=== PATIENT | female | born 1950 | race African-American/Black ===

== ENCOUNTER 2021-06-27 10:07 | Outpatient (CLI) | payer MEDICARE, BC ==
[2021-06-27 12:29] LABS: Mean Corpuscular HGB CONC 34.2 g/dL (32.0-36.0); Mean Corpuscular Hemoglobin 29.6 pg (27.0-33.0); Mean Corpuscular Volume 86.8 fl (81.6-98.3); Mean Platelet Volume 9.8 fl (7.4-10.4); Platelet Count 272 10x3/uL (150-450); RBC Distribution Width 15.6 % (11.5-14.5); Red Blood Cell (RBC) Count 5.06 10x6/uL (3.90-5.03); White Blood Cell (WBC) Count 8.6 10x3/uL (3.5-10.5)
[2021-06-27 12:45] LABS: Anion Gap 14 mmol/L (10-20); BUN (Urea Nitrogen) 15 mg/dL (9.8-20.1); Calc. Creatinine Clearance 0 mL/min (70-130); Calcium 9.6 mg/dL (7.8-10.44); Carbon Dioxide 31 mmol/L (23-31); Chloride 102 mmol/L (98-107); Glucose 129 mg/dL (80-115); Potassium 4.3 mmol/L (3.5-5.1); Sodium 143 mmol/L (136-145)
[2021-06-27 22:06] LABS: SARS-CoV-2 PCR by NAA Not Detected (NotDetected)
== END 2021-06-27 10:08 | disposition home or self-care (01) ==
LOC: LABBT 10:07
PROVIDERS: ATTEND Neurological Surgery
DX: Z01.818 Encounter for other preprocedural examination (principal); M43.16 Spondylolisthesis, lumbar region; Z20.822 Contact with and (suspected) exposure to COVID-19
CPT/HCPCS: 80048; 85027; 93005; U0003; U0005; 93010

== ENCOUNTER 2021-07-02 05:30 | Inpatient (IN) | payer MEDICARE, BC ==
[2021-07-02] MEDS ORDERED: fentaNYL Citrate/PF 100 MCG/2 ML SYRINGE ONE (06:40)
[2021-07-02] MEDS ORDERED: Ondansetron PF 4 MG/2 ML Vial ONE (06:46)
[2021-07-02] MEDS ORDERED: PROPOFOL 200 MG/20 ML VIAL ONE (06:46)
[2021-07-02] MEDS ORDERED: Lidocaine 1% PF 5 ML VIAL ONE (06:46)
[2021-07-02] MEDS ORDERED: PHENYLEPHRINE-NS 100 MCG/ML 10 ML SYRINGE ONE (06:46)
[2021-07-02] MEDS ORDERED: ePHEDrine 50 MG/ML VIAL ONE (06:46)
[2021-07-02] MEDS ORDERED: Dexamethasone 20 MG/5 ML VIAL ONE (06:46)
[2021-07-02] MEDS ORDERED: Rocuronium Bromide 10 MG/ML (10ML VIAL) ONE (06:46)
[2021-07-02] MEDS ORDERED: ceFAZolin (BATCH) 2 GM/100 ML BAG ONE (07:00)
[2021-07-02] MEDS ORDERED: Ondansetron HCl/PF 4 MG/2 ML Vial IVP PRN (07:03)
[2021-07-02] MEDS ORDERED: Meperidine HCl/PF 25 MG/ML VIAL SLOW IVP PRN ×2 (07:03)
[2021-07-02] MEDS ORDERED: Promethazine HCl 25 MG/ML VIAL IVPB PRN (07:03)
[2021-07-02] MEDS ORDERED: Morphine Sulfate 2 MG/ML SYRINGE SLOW IVP PRN (07:03)
[2021-07-02] MEDS ORDERED: HYDROmorphone 2 MG/ML VIAL SLOW IVP PRN (07:03)
[2021-07-02] MEDS ORDERED: Promethazine HCl 25 MG/ML VIAL IM PRN ×2 (07:03→12:15)
[2021-07-02] MEDS ORDERED: HYDROmorphone 2 MG/ML VIAL ONE (07:49)
[2021-07-02] MEDS ORDERED: SUGAMMADEX SODIUM 200 MG/2 ML VIAL ONE (08:44)
[2021-07-02] MEDS ORDERED: Fentanyl 250 MCG/5 ML VIAL ONE (09:13)
[2021-07-02 10:59] VITALS: BMI 37.2
[2021-07-02] MEDS ORDERED: Morphine 4 MG/ML VIAL SLOW IVP PRN (12:15)
[2021-07-02] MEDS ORDERED: Acetaminophen/Codeine 30-300mg Tablet PO PRN (12:15)
[2021-07-02] MEDS ORDERED: Milk Of Magnesia 30 ML UDCUP PO PRN (12:15)
[2021-07-02] MEDS ORDERED: Morphine 2 MG/ML VIAL SLOW IVP PRN (12:15)
[2021-07-02] MEDS ORDERED: diphenhydrAMINE 50 MG/ML VIAL IVP PRN (12:15)
[2021-07-02] MEDS ORDERED: Mag-Al 1200 mg/1200 mg/30 ML UDCUP PO PRN (12:15)
[2021-07-02] MEDS ORDERED: traMADol HCl 50 MG TAB PO PRN (12:15)
[2021-07-02] MEDS ORDERED: Ondansetron PF 4 MG/2 ML Vial IM PRN (12:15)
[2021-07-02] MEDS ORDERED: diphenhydrAMINE 25 MG CAP PO PRN (12:15)
[2021-07-02] MEDS ORDERED: Promethazine HCl 12.5 MG SUPP PR PRN (12:15)
[2021-07-02] MEDS: traMADol HCl 50 MG TAB PO PRN ×2 (12:21→20:48)
[2021-07-02] MEDS: Sodium Chloride 0.9% 1,000 ML IV SCH (12:22)
[2021-07-02] MEDS: ceFAZolin (BATCH) 2 GM in Premix Bag 1 BAG IVPB SCH ×2 (13:27→22:23)
[2021-07-02] MEDS: Amlodipine 10 MG TAB PO SCH (13:28)
[2021-07-02] MEDS: Furosemide 20 MG TAB PO SCH (13:28)
[2021-07-02] MEDS: Albuterol Sulfate 2.5 mg/3 ml Neb NEB SCH ×2 (14:40→19:00)
[2021-07-02] MEDS: Acetaminophen/Codeine 30-300mg Tablet PO PRN ×3 (15:27→23:59)
[2021-07-02] MEDS: Mometasone 200 MCG/Formoterol 5 MCG 120 PUFF INHALER INH SCH (18:58)
[2021-07-02] MEDS: Promethazine 25 MG TAB PO PRN (22:26)
[2021-07-03] MEDS: Albuterol Sulfate 2.5 mg/3 ml Neb NEB SCH ×3 (07:32→18:45)
[2021-07-03] MEDS: Mometasone 200 MCG/Formoterol 5 MCG 120 PUFF INHALER INH SCH ×2 (07:33→18:38)
[2021-07-03] MEDS: traMADol HCl 50 MG TAB PO PRN ×2 (08:25→19:33)
[2021-07-03] MEDS: Amlodipine 10 MG TAB PO SCH (08:26)
[2021-07-03] MEDS: Furosemide 20 MG TAB PO SCH (08:26)
[2021-07-03] MEDS: Acetaminophen/Codeine 30-300mg Tablet PO PRN ×3 (10:32→22:24)
[2021-07-03] MEDS: Sodium Chloride 0.9% 1,000 ML IV SCH ×2 (15:36)
[2021-07-03 17:15] LABS: #Eosinphils 0.1 thou/uL (0.0-0.7); #Lymphocytes 1.2 thou/uL (1.20-3.40); #Neutrophils 7.3 thou/uL (1.40-6.50); %Basophils 0.4 % (0.0-1.0); %Eosinophils 0.9 % (0.0-10.0); %Lymphocytes 12.4 % (21.0-51.0); %Neutrophils 76.2 % (42.0-75.0); Hemoglobin 14.9 g/dL (12.0-16.0); Mean Corpuscular Hemoglobin 29.9 pg (27.0-31.0); Mean Corpuscular Volume 93.3 fL (78.0-98.0); Mean Platelet Volume 7.2 fL (7.4-10.4); Platelet Count 264 thou/uL (130-400); RBC Distribution Width 14.6 % (11.5-14.5); Red Blood Cell (RBC) Count 4.98 mill/uL (4.20-5.40); White Blood Cell (WBC) Count 9.6 thou/uL (4.8-10.8)
[2021-07-03 17:32] LABS: Anion Gap 15 mmol/L (10-20); BUN (Urea Nitrogen) 8 mg/dL (9.8-20.1); Calc. Creatinine Clearance 125 mL/min (70-130); Calcium 8.8 mg/dL (7.8-10.44); Carbon Dioxide 24 mmol/L (23-31); Chloride 104 mmol/L (98-107); Glucose 94 mg/dL (80-115); Potassium 4.1 mmol/L (3.5-5.1); Sodium 139 mmol/L (136-145)
[2021-07-03] MEDS: Cyclobenzaprine 10 MG TAB PO PRN (19:33)
[2021-07-04] MEDS: Sodium Chloride 0.9% 1,000 ML IV SCH ×2 (05:38→12:58)
[2021-07-04] MEDS: Cyclobenzaprine 10 MG TAB PO PRN ×2 (06:18→22:22)
[2021-07-04] MEDS: traMADol HCl 50 MG TAB PO PRN (06:18)
[2021-07-04] MEDS: Promethazine 25 MG TAB PO PRN (06:56)
[2021-07-04] MEDS: Mometasone 200 MCG/Formoterol 5 MCG 120 PUFF INHALER INH SCH ×2 (07:13→21:59)
[2021-07-04] MEDS: Albuterol Sulfate 2.5 mg/3 ml Neb NEB SCH ×3 (07:13→21:58)
[2021-07-04] MEDS: Furosemide 20 MG TAB PO SCH (10:20)
[2021-07-04] MEDS: Amlodipine 10 MG TAB PO SCH (10:20)
[2021-07-04] MEDS: Acetaminophen/Codeine 30-300mg Tablet PO PRN ×2 (13:01→19:24)
[2021-07-04] MEDS: Phenazopyridine HCl 97.5 MG TABLET PO SCH ×2 (13:02→17:42)
[2021-07-04] MEDS ORDERED: Polyethylene Glycol 3350 17 GM Packet PO PRN (20:22)
[2021-07-05] MEDS: Acetaminophen/Codeine 30-300mg Tablet PO PRN ×4 (00:26→20:13)
[2021-07-05] MEDS: Sodium Chloride 0.9% 1,000 ML IV SCH ×2 (05:15→19:35)
[2021-07-05] MEDS: Mometasone 200 MCG/Formoterol 5 MCG 120 PUFF INHALER INH SCH ×2 (07:36→22:04)
[2021-07-05] MEDS: Albuterol Sulfate 2.5 mg/3 ml Neb NEB SCH ×3 (07:37→22:04)
[2021-07-05] MEDS: Furosemide 20 MG TAB PO SCH (08:25)
[2021-07-05] MEDS: Amlodipine 10 MG TAB PO SCH (08:25)
[2021-07-05] MEDS: Phenazopyridine HCl 97.5 MG TABLET PO SCH ×3 (08:25→17:19)
[2021-07-05] MEDS: Cyclobenzaprine 10 MG TAB PO PRN ×2 (13:31→20:18)
[2021-07-06] MEDS: Acetaminophen/Codeine 30-300mg Tablet PO PRN ×3 (01:54→13:22)
[2021-07-06] MEDS ORDERED: Fleet Enema 133 ML BOT PR PRN ×2 (06:30→12:26)
[2021-07-06] MEDS: Albuterol Sulfate 2.5 mg/3 ml Neb NEB SCH (06:58)
[2021-07-06] MEDS: Mometasone 200 MCG/Formoterol 5 MCG 120 PUFF INHALER INH SCH (06:59)
[2021-07-06] MEDS ORDERED: Cephalexin 250 MG CAP PO SCH (09:00)
[2021-07-06] MEDS ORDERED: Cephalexin 250 MG/5 ML Oral Suspension PO SCH (09:00)
[2021-07-06 09:13] VITALS: TEMP 98.3
[2021-07-06] MEDS: Amlodipine 10 MG TAB PO SCH (09:14)
[2021-07-06] MEDS: Furosemide 20 MG TAB PO SCH (09:15)
[2021-07-06] MEDS: Phenazopyridine HCl 97.5 MG TABLET PO SCH (09:16)
[2021-07-06 09:26] VITALS: BP 124/81
[2021-07-06] MEDS: Sodium Chloride 0.9% 1,000 ML IV SCH (11:38)
== END 2021-07-06 13:30 | disposition swing bed (61) | DRG 460 ==
LOC: SDC 05:30 → MSONC 09:29 → OBSVTOIN 07-03 15:56
PROVIDERS: ADMIT Neurological Surgery; ATTEND Neurological Surgery
PROC: 0SG0071 Fusion of Lumbar Vertebral Joint with Autologous Tissue Substitute, Posterior Approach, Posterior Column, Open Approach (ICD-10-PCS; principal; 2021-07-05)
PROC: 0SG3071 Fusion of Lumbosacral Joint with Autologous Tissue Substitute, Posterior Approach, Posterior Column, Open Approach (ICD-10-PCS; 2021-07-05)
PROC: 01NB0ZZ Release Lumbar Nerve, Open Approach (ICD-10-PCS; 2021-07-05)
PROC: 01NR0ZZ Release Sacral Nerve, Open Approach (ICD-10-PCS; 2021-07-05)
DX: M48.061 Spinal stenosis, lumbar region without neurogenic claudication (principal); M43.16 Spondylolisthesis, lumbar region; Z20.822 Contact with and (suspected) exposure to COVID-19; I10 Essential (primary) hypertension; E78.5 Hyperlipidemia, unspecified; J44.9 Chronic obstructive pulmonary disease, unspecified; M51.36 Other intervertebral disc degeneration, lumbar region; F17.210 Nicotine dependence, cigarettes, uncomplicated; N32.89 Other specified disorders of bladder; K59.00 Constipation, unspecified; R33.9 Retention of urine, unspecified; Z88.5 Allergy status to narcotic agent; Z88.8 Allergy status to other drugs, medicaments and biological substances; Z79.899 Other long term (current) drug therapy; Z79.51 Long term (current) use of inhaled steroids; Z98.890 Other specified postprocedural states
CPT/HCPCS: 36415; 76000; 80048; 85025; 94640; C1713; C1768; J0690; J1100; J1170; J2270; J2405; J2704; J3010; J3370; J3490; J7050; J7611; J7620; Q0169

== ENCOUNTER 2021-07-17 12:36 | Outpatient (CLI) | payer MEDICARE, BC | END 2021-07-17 12:37 | disposition home or self-care (01) | LOC: TBSIIMAG 12:36 | PROVIDERS: ATTEND Neurological Surgery | DX: M43.16 Spondylolisthesis, lumbar region (principal); M47.816 Spondylosis without myelopathy or radiculopathy, lumbar region; Z98.890 Other specified postprocedural states | CPT/HCPCS: 72100 ==